=== PATIENT | female | born 1980 | race Asian ===

== ENCOUNTER 2017-03-24 05:40 | Day surgery (SDC) | payer OTHER ==
[~2017-03-24] VITALS: Ht 160 cm; Wt 54.4 kg
[2017-03-24] MEDS ORDERED: PROPOFOL 200MG/ 20ML VIAL (DIPRIVAN) IV ONE (05:41)
[2017-03-24] MEDS ORDERED: KETOROLAC TROMETHAMINE 30 MG VIAL IVP ONE (05:41)
[2017-03-24] MEDS ORDERED: MIDAZOLAM HCL 5 MG/ML VIAL (VERSED) IV ONE (05:41)
[2017-03-24] MEDS ORDERED: fentaNYL CITRATE/PF 100 MCG/2 ML AMP IVP ONE (05:41)
[2017-03-24] MEDS ORDERED: ONDANSETRON HCL 4 MG/2 ML VIAL IVP ONE (05:41)
[2017-03-24] MEDS ORDERED: OXYTOCIN 10 UNIT/ML VIAL IV ONE (05:41)
[2017-03-24] MEDS ORDERED: SEVOFLURANE 15 MIN GAS INH ONE (05:41)
[2017-03-24] MEDS ORDERED: MIVACURIUM CHLORIDE 20 MG/10 ML VIAL (MIVACRON) INJ ONE (05:41)
[2017-03-24] MEDS ORDERED: LR 1,000 ML IV SCH (08:25)
[2017-03-24] MEDS ORDERED: METOCLOPRAMIDE HCL 10 MG/2 ML VIAL IVP PRN (08:30)
[2017-03-24] MEDS ORDERED: MEPERIDINE HCL/PF 50 MG/ML AMP IVP PRN ×2 (08:30)
[2017-03-24] MEDS ORDERED: ONDANSETRON HCL 4 MG/2 ML VIAL IVP PRN (08:45)
[2017-03-24] MEDS ORDERED: PROMETHAZINE HCL 25 MG/ML AMP IM PRN (08:45)
[2017-03-24] MEDS ORDERED: HYDROmorphone 2 MG TAB PO PRN (08:45)
[2017-03-24] MEDS ORDERED: OXYCODONE/ACETAMINOPHEN 5-325 TABLET PO PRN (08:45)
[2017-03-24 09:43] VITALS: BP_SYST 106
== END 2017-03-24 10:47 | disposition home or self-care (01) ==
LOC: SDS 05:40 → SMU 05:40 → SDS 10:47
PROVIDERS: ATTEND Obstetrics & Gynecology
DX: O02.1 Missed abortion (principal); D64.9 Anemia, unspecified
CPT/HCPCS: 36415; 59820; 86886; 86900; 86901; 88305; J7120; J1885; J2250; J2405; J2590; J2704; J3010